=== PATIENT | female | born 1950 | race Two or more races ===

== ENCOUNTER 2023-01-23 06:20 | Day surgery (SDC) | payer OTHER ==
[~2023-01-23] VITALS: Ht 160 cm; Wt 50.8 kg
[~2023-01-23 06:20] MED LIST: ANASTROZOLE1 MG PO; LOSARTAN POTASS50 MG PO; METOPROLOL SUCC25 MG PO; SYNTHROID75 MCG PO
== END 2023-01-23 20:40 | disposition home or self-care (01) ==
LOC: CIR.AMB 06:20
PROVIDERS: ATTEND Surgery
DX: C50.411 Malignant neoplasm of upper-outer quadrant of right female breast (principal); C77.3 Secondary and unspecified malignant neoplasm of axilla and upper limb lymph nodes; Z20.822 Contact with and (suspected) exposure to COVID-19; R92.1 Mammographic calcification found on diagnostic imaging of breast; I10 Essential (primary) hypertension

== ENCOUNTER 2023-09-12 07:08 | Outpatient (CLI) | payer OTHER ==
[2023-09-12 08:26] LABS: HEMATOCRIT 32.4 % (36.0-45.00); MEAN CELL VOLUME 88.6 fL (80.00-100.00); MEAN CORPUSCULAR HEMOGLOBIN 29.9 pg (27.00-32.0); MEAN CORPUSCULAR HGB CONC 33.8 g/dl (32.0-36.0); PLATELET COUNT 198 K/uL (150-450); RED BLOOD COUNT 3.66 M/uL (4.00-6.00); RED CELL DISTRIBUTION WIDTH 16.4 % (11.5-14.5)
== END 2023-09-12 07:09 | disposition home or self-care (01) ==
LOC: LAB 07:08
PROVIDERS: ATTEND Internal Medicine Hematology & Oncology
DX: Z51.11 Encounter for antineoplastic chemotherapy (principal); C77.3 Secondary and unspecified malignant neoplasm of axilla and upper limb lymph nodes; C50.811 Malignant neoplasm of overlapping sites of right female breast; E86.0 Dehydration

== ENCOUNTER → 2023-10-05 07:41 | Outpatient (CLI) | payer OTHER ==
[2023-10-05 08:42] LABS: HEMATOCRIT 34.5 % (36.0-45.00); HEMOGLOBIN 11.4 g/dL (12.0-15.00); MEAN CELL VOLUME 88.2 fL (80.00-100.00); MEAN CORPUSCULAR HEMOGLOBIN 29.1 pg (27.00-32.0); PLATELET COUNT 174 K/uL (150-450); RED BLOOD COUNT 3.91 M/uL (4.00-6.00); RED CELL DISTRIBUTION WIDTH 16.2 % (11.5-14.5)
== END | disposition home or self-care (01) ==
LOC: LAB 07:41
PROVIDERS: ATTEND Internal Medicine Hematology & Oncology
DX: C77.3 Secondary and unspecified malignant neoplasm of axilla and upper limb lymph nodes (principal); C44.501 Unspecified malignant neoplasm of skin of breast; C50.811 Malignant neoplasm of overlapping sites of right female breast; Z51.11 Encounter for antineoplastic chemotherapy

== ENCOUNTER → 2023-10-12 06:04 | Outpatient (CLI) | payer OTHER ==
[2023-10-12 08:06] LABS: HEMATOCRIT 32.3 % (36.0-45.00); HEMOGLOBIN 10.8 g/dL (12.0-15.00); MEAN CELL VOLUME 88.8 fL (80.00-100.00); MEAN CORPUSCULAR HEMOGLOBIN 29.6 pg (27.00-32.0); MEAN CORPUSCULAR HGB CONC 33.4 g/dl (32.0-36.0); PLATELET COUNT 167 K/uL (150-450); RED BLOOD COUNT 3.64 M/uL (4.00-6.00); RED CELL DISTRIBUTION WIDTH 16.3 % (11.5-14.5)
== END | disposition home or self-care (01) ==
LOC: LAB 06:04
PROVIDERS: ATTEND Internal Medicine Hematology & Oncology
DX: C50.811 Malignant neoplasm of overlapping sites of right female breast (principal); C50.911 Malignant neoplasm of unspecified site of right female breast; C77.3 Secondary and unspecified malignant neoplasm of axilla and upper limb lymph nodes

== ENCOUNTER 2023-11-09 08:40 | Outpatient (CLI) | payer OTHER ==
[2023-11-09 09:53] LABS: HEMATOCRIT 33.3 % (36.0-45.00); HEMOGLOBIN 11.2 g/dL (12.0-15.00); MEAN CELL VOLUME 85.1 fL (80.00-100.00); MEAN CORPUSCULAR HEMOGLOBIN 28.6 pg (27.00-32.0); MEAN CORPUSCULAR HGB CONC 33.6 g/dl (32.0-36.0); PLATELET COUNT 167 K/uL (150-450); RED BLOOD COUNT 3.91 M/uL (4.00-6.00); RED CELL DISTRIBUTION WIDTH 17.5 % (11.5-14.5)
== END 2023-11-09 08:46 | disposition home or self-care (01) ==
LOC: LAB 08:40
PROVIDERS: ATTEND Internal Medicine Hematology & Oncology
DX: C50.811 Malignant neoplasm of overlapping sites of right female breast (principal); Z51.11 Encounter for antineoplastic chemotherapy; E86.0 Dehydration; D70.1 Agranulocytosis secondary to cancer chemotherapy

== ENCOUNTER → 2024-10-14 07:29 | Outpatient (CLI) | payer OTHER ==
[2024-10-14 08:06] LABS: HEMATOCRIT 39.6 % (36.0-45.00); MEAN CELL VOLUME 87.4 fL (80.00-100.00); MEAN CORPUSCULAR HEMOGLOBIN 28.7 pg (27.00-32.0); MEAN CORPUSCULAR HGB CONC 32.8 g/dl (32.0-36.0); RED BLOOD COUNT 4.53 M/uL (4.00-6.00); RED CELL DISTRIBUTION WIDTH 13.6 % (11.5-14.5)
[2024-10-14 08:10] LABS: PLATELET COUNT 127 K/uL (150-450)
[2024-10-14 09:21] LABS: BILIRUBIN TOTAL 0.86 mg/dL (0.3-1.2); CALCIUM 9.2 mg/dL (8.5-10.1); CREATININE SERUM 0.73 mg/dL (0.55-1.02); FERRITIN 60.7 NG/ML (8-252); GFR 78.37; GLOBULINA 3.3 G/DL (2.4-3.5); POTASSIUM 3.61 mEq/L (3.5-5.1); TOTAL PROTEIN 7.3 gm/dL (6.4-8.2)
[2024-10-15 08:08] LABS: CA 15-3 9.2 U/mL (0.0-25.0); CA 27.29 12.7 U/mL (0.0-38.6)
== END | disposition home or self-care (01) ==
LOC: LAB 07:29
DX: E78.5 Hyperlipidemia, unspecified (principal); D64.9 Anemia, unspecified; C50.911 Malignant neoplasm of unspecified site of right female breast; R97.8 Other abnormal tumor markers; Z85.3 Personal history of malignant neoplasm of breast

== ENCOUNTER 2025-01-30 08:04 | Outpatient (CLI) | payer OTHER | END 2025-01-30 08:07 | disposition home or self-care (01) | LOC: MAMO-SONO 08:04 | DX: C50.911 Malignant neoplasm of unspecified site of right female breast (principal); Z90.11 Acquired absence of right breast and nipple ==